=== PATIENT | female | born 1980 ===

== ENCOUNTER 2016-07-25 07:43 | Day surgery (SDC) | payer OTHER ==
[2016-07-25 08:42] VITALS: BMI 38.4
[2016-07-25 08:52] VITALS: O2SAT 100
[2016-07-25] MEDS ORDERED: Propofol 10 mg/ml Inj (20 ML) ONE (09:21)
--- NOTE | 2016-07-25 09:21 | CP.SDSHP ---
Same Day Surgery H & P - History Proposed Procedure: EGD Pre-Op Diagnosis: SEE NOTES - Previous Medical/Surgical History Cardiac: Hypertension Endocrine/Metabolic: Diabetes, Other Misc: Other Pain: 4.Moderate Pain - Allergies Allergies: Allergies No Known Allergies Allergy (Verified 05/09/16 08:55) - Physical Exam General Appearance: N Vital Signs: Vital Signs 07/25/16 08:30 Temperature 1449 F H Pulse Rate 80 Respiratory 20 Rate Blood Pressure 144/90 O2 Sat by Pulse 100 Oximetry Mental Status: Alert & Oriented x3 Neuro: WNL Heart: Other Lungs: WNL GI: WNL - {Optional Preform as Required} Breast: WNL Abdomen: Other Rectal: Other Integument: WNL : WNL Ortho: WNL ENT: WNL - Impression Pt. Evaluated Today:Candidate for Anesthesia & Procedure: Yes - Date & Time Time: 09:21 Short Stay Discharge - Short Stay Discharge Admitting Diagnosis/Reason for Visit: GASTRIC ULCER Disposition: HOME/ ROUTINE
[2016-07-25] MEDS ORDERED: Lidocaine Hydrochloride 5 ML INJ ONE (09:22)
[2016-07-25] MEDS ORDERED: Pantoprazole 40 mg EC Tab PO STA (09:23)
[2016-07-25] MEDS ORDERED: Belladonna-Phenobarbital PO STA (09:23)
[2016-07-25 09:26] VITALS: RESP 18
[2016-07-25] MEDS ORDERED: Lactated Ringer's 500 ML IV ONE (09:30)
[2016-07-25 10:08] VITALS: TEMP 98
[2016-07-25 10:09] VITALS: BP 140/82; PULSE 69
== END 2016-07-25 10:17 | disposition home or self-care (01) ==
LOC: C.ENDO 07:43
PROVIDERS: ATTEND Specialist
DX: K20.9 Esophagitis, unspecified (principal); K29.70 Gastritis, unspecified, without bleeding; K44.9 Diaphragmatic hernia without obstruction or gangrene
CPT/HCPCS: 43239; 82948; 84703; 88305; 88342; J2704; J3010; J7120

== ENCOUNTER 2017-09-06 06:20 | Day surgery (SDC) | payer OTHER ==
--- NOTE | 2017-09-06 07:40 | CP.SDSHP ---
Same Day Surgery H & P - History Proposed Procedure: COLONSCOPY Pre-Op Diagnosis: SEE NOTES - Previous Medical/Surgical History Misc: Other Pain: 4.Moderate Pain - Allergies Allergies: Allergies No Known Allergies Allergy (Verified 09/06/17 06:56) - Physical Exam General Appearance: N Vital Signs: Vital Signs 09/06/17 06:40 Temperature 97 F L Pulse Rate 74 Respiratory 19 Rate Blood Pressure 134/83 O2 Sat by Pulse 99 Oximetry Mental Status: Alert & Oriented x3 Neuro: WNL Heart: WNL Lungs: WNL GI: Other - {Optional Preform as Required} Breast: WNL Abdomen: Other Rectal: Other Integument: WNL : WNL Ortho: WNL ENT: WNL - Impression Pt. Evaluated Today:Candidate for Anesthesia & Procedure: Yes - Date & Time Time: 07:39 Short Stay Discharge - Short Stay Discharge Admitting Diagnosis/Reason for Visit: ABDOMINAL PAIN / CHANGE IN BOWEL HABITS Disposition: HOME/ ROUTINE
[2017-09-06] MEDS ORDERED: Midazolam 2 MG/2 ML VIAL ONE (07:42)
[2017-09-06] MEDS ORDERED: Propofol 10 mg/ml Inj (20 ML) ONE (07:42)
[2017-09-06] MEDS ORDERED: Lactated Ringer's 1,000 ML IV ONE (07:45)
[2017-09-06 08:13] VITALS: TEMP 98.6; O2SAT 100
[2017-09-06] MEDS ORDERED: Belladonna-Phenobarbital PO ONE (08:30)
[2017-09-06 08:36] VITALS: PULSE 62; RESP 14
[2017-09-06 09:07] VITALS: BP 129/85
== END 2017-09-06 09:41 | disposition home or self-care (01) ==
LOC: C.ENDO 06:20
PROVIDERS: ATTEND Specialist
DX: K58.9 Irritable bowel syndrome, unspecified (principal); R10.9 Unspecified abdominal pain; R19.4 Change in bowel habit
CPT/HCPCS: 45380; 84703; 88305; J2250; J2704; J7120